=== PATIENT | female | born 1945 | race Caucasian/White ===

== ENCOUNTER 2022-12-28 14:12 | Outpatient (CLI) | payer MEDICARE, SELFPAY ==
--- NOTE | ~2022-12-28 | CT_ITS ---
EXAMINATION: CT shoulder LT wo con DATE: 12/28/2022 14:37 INDICATION: Left shoulder osteoarthritis for preoperative planning TECHNIQUE: Computed tomography (CT) of the left shoulder was performed without intravenous contrast. CT reconstructions of the hip were obtained in the axial, coronal, and sagittal planes. The dose-payton th product was mGy-cm. COMPARISON: None FINDINGS: No fracture. Cephalad subluxation of the humeral head with respect to the glenoid with narrowing of t he subacromial space. There is also moderate fatty atrophy of the supraspinatus, both findings sugges ting chronic at least partial tear of the supraspinatus tendon. Alignment is otherwise normal. There is advanced left glenohumeral osteoarthritis with remodeling with loss of bone stock along the medial aspect of the humeral head as well as of the glenoid, bladder resulting in approximately 5 degrees o f acquired retroversion. Moderate subarticular cystic change along the inferior glenoid. Moderate lef t acromioclavicular osteoarthritis. There is a large glenohumeral joint effusion which accumulates pr imarily within the deep subscapular recess which is distended to 5.8 x 4.6 x 4.6 cm. There is also pr ominent distention of the long head biceps tendon sheath measuring 3.6 x 3.1 x 3.7 cm. Somewhat amorp hous calcification in the region of the rotator cuff interval and distal supraspinatus tendon which c ould represent either calcific debris from the advanced osteoarthritis or potentially calcific tendin itis. There appears be a lucent suture anchor tract at the cephalad aspect of the intertubercular nayan ove suggesting prior bicipital tenodesis. Atherosclerotic coronary artery calcifications. No pericard ial effusion. No pathologically enlarged lymphadenopathy at the left axilla or visualized portions of the left hemithorax. IMPRESSION: 1. Advanced left glenohumeral osteoarthritis with associated large joint effusion. 2. 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 3. Calcification at the rotator cuff interval and expected region of the distal supraspinatus tendon which could represent calcific debris related to the osteoarthritis or potentially calcific tendiniti s. Reviewed, dictated and finalized at location A. IMPRESSION: 1. Advanced left glenohumeral osteoarthritis with associated large joint effusi on. 2. 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 3. Calcification at the rotator cuff interval and expected region of the distal supraspinatus tendon which could represent calcific debris related to the oste oarthritis or potentially calcific tendinitis.
== END 2022-12-28 14:13 | disposition home or self-care (01) ==
PROVIDERS: PCP Physician Assistant; Visit Provider Orthopaedic Surgery
DX: M19.012 Primary osteoarthritis, left shoulder (principal); S46.812A Strain of other muscles, fascia and tendons at shoulder and upper arm level, left arm, initial encounter; M75.32 Calcific tendinitis of left shoulder; X58.XXXA Exposure to other specified factors, initial encounter
CPT/HCPCS: 73200

== ENCOUNTER 2023-03-07 09:50 | Outpatient (CLI) | payer MEDICARE, SELFPAY ==
[2023-03-07 11:08] LABS: Basophils Absolute Auto 0.1 K/mm3 (0.0-0.1); Basophils Percent Auto 1.2 % (0.2-1.2); Eosinophils Absolute Auto 0.3 K/mm3 (0-0.3); Eosinophils Percent Auto 3.9 % (0-4.4); Hematocrit 38.4 % (37.0-47.0); Hemoglobin 11.9 g/dL (12.0-15.0); Immature Granulocyte Absolute 0.02 K/mm3 (0.00-0.031); Immature Granulocyte Percent A 0.3 % (0-0.5); Lymphocytes Absolute Auto 1.71 K/mm3 (0.9-3.2); Lymphocytes Percent Auto 23.3 % (18.3-44.2); Mean Corpuscular Hemoglobin 30.3 pg (26-34); Mean Corpuscular Volume 97.7 fl (80-100); Mean Platelet Volume 8.9 fl (7.4-10.4); Monocytes Absolute Auto 0.6 K/mm3 (0.1-0.6); Monocytes Percent Auto 8.7 % (2.6-8.5); Neutrophils Absolute Auto 4.6 K/mm3 (1.3-6.7); Neutrophils Percent Auto 62.6 % (45.5-73.1); Platelet Count Result 436 k/mm3 (150-375); Red Blood Count 3.93 M/mm3 (4.2-5.4); Red Cell Distribution Width 13.1 % (11.5-14.5); White Blood Count 7.4 K/mm3 (4.5-10.0)
[2023-03-07 11:18] LABS: Potassium 4.2 mmol/L (3.4-5.0)
[2023-03-07 11:19] LABS: Anion Gap 5 mmol/L (8-16); Blood Urea Nitrogen 17 mg/dL (7-17); Carbon Dioxide 29 mmol/L (22-30); Chloride 103 mmol/L (98-107); Estimated Glomerular Filt Rate > 60; Glucose 83 mg/dL (65-110); Sodium 137 mmol/L (137-145)
== END 2023-03-07 09:51 | disposition home or self-care (01) ==
LOC: ANHSURGERY 09:53
PROVIDERS: Anesthesiology; PCP Physician Assistant; Visit Provider Orthopaedic Surgery
DX: M12.812 Other specific arthropathies, not elsewhere classified, left shoulder (principal); E11.9 Type 2 diabetes mellitus without complications
CPT/HCPCS: 36415; 80048; 85025; 87081

== ENCOUNTER 2023-04-03 02:39 | Day surgery (SDC) | payer MEDICARE, SELFPAY ==
[2023-03-07 10:00] VITALS: BMI 26.6
--- NOTE | 2023-03-07 10:40 | PC.NURSE ---
Report to the Outpatient Waiting Room, entrance under the green pavilion located off [facility], at time __0830 on date _04/03/23 . Planned Procedure Time: ___1030 . Time changes happen often and if your time is changed the preop area will call you the afternoon before. - You and your visitor will be asked to self-screen and do not enter if you have any COVID symptoms. - A mask is optional within the hospital at this time. Patients may have clear liquids (water, carbonated beverages, clear teas, apple juice) until 3 hours prior to surgery with a maximum of 20 ounces. - No food from midnight until time of surgery - Infants may have breast milk until 4 hours before surgery, infant formula 6 hours prior to surgery. - Children will be allowed to drink immediately following surgery. If applicable, please bring a bottle or sippy cup to assist with drinking. Juice, water, soda, and popsicles are readily available. For infants on formula, please bring formula the day of surgery. Pacifiers are allowed. Take the following medications with a SIP of water the morning of surgery: _AMLODIPINE,GABAPENTIN,PAROXETINE DO NOT STOP ANY OF YOUR OTHER PRESCRIPTION MEDICATIONS PRIOR TO SURGERY ?EXCEPT THE FOLLOWING Medications to discontinue per physician __ASPIRIN 7 DAYS PRE OP PER DR MELENDEZ .LAST DOSE 03/26/23. ALL VITAMINS AND SUPPLEMENTS 3 DAYS PRE OP.LAST DOSE 03/30/23 Please no make-up, nail irish, hairspray, perfume, deodorant, or body powder the day of surgery. No jewelry (including any body piercings) or valuables the day of surgery, leave them at home. Please take a shower or bath the night before, or the morning of, surgery with an antibacterial soap. Wear comfortable, loose fitting clothing. Children are encouraged to wear pajamas. - Jewelry must be removed prior to entering the operating room. Rings and piercings that are not removed may be cut off. - The hospital will not accept responsibility for valuables. - Please leave all valuables, including medications, at home the day of surgery. If you are going home after surgery, a licensed recycler forklift driver truck driver must drive you home. - NO public transportation without another adult if you receive anesthesia. - We recommend that an adult stay with you for 24 hours following discharge. - We also recommend that you do not drive, make important decision, drink alcoholic beverages, or take any drugs that were not prescribed by your health care provider for at least 24 hours after your discharge time. For Pediatric surgeries, we recommend two adults accompany the child home. Follow any additional instructions given to you from your surgeon. If you or anyone in your household have experienced Covid symptoms in the past week, please notify your surgeon or the nurse liaison at the phone number below for possible testing. VERBAL AND WRITTEN instructions given to _PATIENT AND SPOUSE BOB and asked if any additional questions and then verbalized understanding. Patient advised to call surgeon office or pre surgery nurse liaison [phone] if any additional questions.
[2023-03-07 10:56] VITALS: BP 144/75; PULSE 66; RESP 18; TEMP 36.9; O2SAT 97
[2023-04-03] VITALS (16 sets, daily range): BP systolic 119–138; BP diastolic 49–91; PULSE 74–91; RESP 14–18; TEMP 36.2–37.2; O2SAT 87–100; BMI 26.1
--- NOTE | ~2023-04-03 | XR_ITS ---
XR shoulder LT min 2V 04/03/2023 13:14 Indication: Left reversed total shoulder arthroplasty Procedure: 2 views left shoulder Comparison: 12/05/2022 Findings: Status post recent left total shoulder arthroplasty. Prosthesis well seated. Surrounding os seous structures are unremarkable. There are degenerative changes of the acromioclavicular joint. No fracture or traumatic malalignment. There is gas in the overlying soft tissues, consistent with recen t surgery. Impression: 1: Status post recent left shoulder arthroplasty. Reviewed, dictated and finalized at location L. Impression: 1: Status post recent left shoulder arthroplasty.
[2023-04-03] MEDS: ACETAMINOPHEN 500 MG TABLET 1000 MG PO ×3 (08:33→20:27)
[2023-04-03 09:02] LABS: Glucose Point of Care 108 mg/dl (65-105)
--- NOTE | 2023-04-03 09:41 | WPDANESEPPF ---
Anes - Initial Pre Proc Eval Procedure: Operation Date: 04/03/23 10:30 Proposed Procedures p Left Reverse Total Shoulder Arthroplasty - Rashad Betts MD Date/Time: 04/03/23 09:41 Surgeon: Rashad Betts MD Pre Op Diagnosis: Lt Rot Cuff Arthropathy Patient Data Age: 78 Gender: F Height: 1.63 m Weight: 69.1 kg Last Vital Signs Temp 36.4 C L 04/03/23 08:42 Pulse 74 04/03/23 08:42 Resp 16 04/03/23 08:42 BP 125/91 H 04/03/23 08:42 Pulse Ox 99 04/03/23 08:42 O2 Del Method Room Air 04/03/23 08:42 Allergies Allergy/AdvReac Type Severity Reaction Status Date / Time latex Allergy Severe HIVES Verified 04/03/23 08:29 adhesive tape Allergy Mild Hives Verified 04/03/23 08:29 Sulfa (Sulfonamide Allergy Mild RASH Verified 04/03/23 08:29 Antibiotics) sulfanilamide Allergy Unknown Unknown Verified 04/03/23 08:29 metoclopramide Allergy Confusion/MUSCLE Verified 04/03/23 08:29 PAIN Home Medications Medication Instructions Recorded Confirmed Type acetaminophen 325 mg capsule 325 mg PO Q6H PRN Pain 12/05/22 02/05/23 History amlodipine 10 mg tablet 10 mg PO DAILY 12/05/22 03/07/23 History atorvastatin 10 mg tablet 20 mg PO DAILY 12/05/22 03/07/23 History famotidine 20 mg tablet 20 mg PO DAILY 12/05/22 03/07/23 History gabapentin 300 mg capsule 300 mg PO TID 12/05/22 03/07/23 History lancets 12/05/22 02/05/23 History losartan 25 mg tablet 25 mg PO DAILY 12/05/22 03/07/23 History metformin 500 mg tablet 1,000 mg PO DAILY 12/05/22 03/07/23 History paroxetine HCl 40 mg tablet 40 mg PO DAILY 12/05/22 03/07/23 History spironolactone 25 mg tablet 12.5 mg PO DAILY 12/05/22 03/07/23 History pantoprazole 40 mg tablet,delayed 40 mg PO QAM 02/05/23 03/07/23 History release vitamin A-vitamin C-vit E-min 1 tablet PO DAILY 02/05/23 03/07/23 History tablet aspirin 81 mg tablet,delayed 81 mg PO DAILY 03/07/23 03/07/23 History release (Adult Low Dose Aspirin) vitamin E 100 unit capsule 45 mg PO DAILY 03/07/23 03/07/23 History mupirocin 2 % topical ointment 1 applic topical TID #15 grams 03/09/23 Rx cholecalciferol (vitamin D3) 50 50 mcg PO DAILY 03/23/23 History mcg (2,000 unit) capsule cyclobenzaprine 5 mg tablet 5 mg PO TID PRN 03/23/23 History aspirin 81 mg tablet,delayed 81 mg PO BID 14 days #28 tabs 04/03/23 Rx release oxycodone-acetaminophen 5 mg-325 1 - 2 tablet PO Q4-6H PRN pain #30 04/03/23 Rx mg tablet tabs Laboratory Tests 04/03/23 08:59 POC Capillary Glucose 108 H mg/dl (65-105) Patient hx anesthesia problems: none Family hx anesthesia problems: none Results Review: All pre-operative results and documents have been reviewed as part of the pre-operative evaluation. [facility] Past Medical History Medical History History of abdominal hernia Surgical History Surgical History History of carpal tunnel surgery of left wrist (~12/09/12) History of foot surgery (~06/13/96) marcos feet neuropathy pins in feet History of left knee replacement (~2009) History of partial hysterectomy (~1993) History of surgery on lower extremity (~04/2019) repaired torn rt leg ligament History of total right hip replacement (~05/21/19) History of total right knee replacement (~09/25/16) Family History Family History Other Diabetes mellitus Family history of Parkinson's disease Family history of arthritis Family history of cardiovascular disease Family history of lung cancer Family history of malignant neoplasm of bone Hypertension Malignant neoplasm of prostate Social History Social History Smoking status: Never smoker Alcohol intake: never Lack of Transportation: No Lack of Food: Never True Current Housing: [place]
[2023-04-03] MEDS: LACTATED RINGERS 1,000 ML 30 ML IV CONT ×2 (09:56→13:00)
[2023-04-03] MEDS: TRANEXAMIC ACID 1,000MG/ISO100 1,000 MG/100 ML BAG 200 MG IVPB (10:04)
--- NOTE | 2023-04-03 10:11 | WPDHPUPDATE1 ---
History and Physical Update Update Date/Time: 04/03/23 10:11 History and Physical has been reviewed, including an updated exam of the patient. There are NO changes in the patient's condition. Risks, benefits, and alternatives have been discussed and questions answered. Patient agrees to proceed with procedure.
[2023-04-03] MEDS: ceFAZolin 2 GM/D5W 50 ML 2 GM/50 ML BAG IVPB ×2 (10:48→17:19)
[2023-04-03 13:13] LABS: Glucose Point of Care 125 mg/dl (65-105)
--- NOTE | 2023-04-03 13:37 | P.OP_ITS ---
Procedure Note - Detailed Date of Procedure 04/03/23 Pre-op Diagnosis Lt Rot Cuff Arthropathy Post-op Diagnosis Same Procedure Performed Reverse total shoulder arthroplasty, left. Surgeon Rashad Betts MD Anesthesia General and Regional (Interscalene block.) Findings 18 degree posterior tilt anatomically corrected with a 15 degree augment and this was slightly oriented superiorly to correct the 10 degree anatomic superior tilt. Reasonably good bone quality. Fairly lax soft tissues. 2 Large ganglion cysts were encountered in the biceps tendon sheath. Description of Procedure The patient was given an interscalene block in the preoperative area. Pre operative antibiotics were given. The patient was transferred to the operating room and a general anesthetic was administered. The beach chair position was used at 45 degrees. All bony prominences were padded. The head was carefully stabilized on the [facility] head of partner development. A sterile prep and drape was performed in the usual manner with ChloraPrep. A longitudinal incision was created at the anterior shoulder just lateral to the deltopectoral interval. Careful dissection was performed to expose the interval and protect the cephalic vein. The vein was retracted medially. Anterior circumflex vessel branches were suture ligated. The biceps was tenodesed. A subscapularis tenotomy was performed. The inferior capsule was released, exposing the humeral head. Osteophytes were removed. Care was taken to stay on bone to protect the axillary nerve. The anatomic head cut was taken with the oscillating saw. The guide pin was placed, central drilling performed, and the broach trial inserted. The neck anteversion and inclination were carefully assessed. The cut protector was placed, and attention was turned to the glenoid. Retractors were placed. Releases were carried out for exposure. The subscapularis was mobilized, the inferior capsule and long head of triceps released, and the superior and middle glenohumeral ligaments released as well. Labral tissue was resected as needed. The sizing template was used to assess the baseplate position low on the glenoid. A guide pin was placed. Minimal reaming was used to accomplish a flat surface without violating the subchondral bone. Version was corrected according to preoperative templating. The boss was drilled, and the real component was impacted into position. Supplemental locking screws were placed centrally, superiorly, and inferiorly. The glenosphere was impacted into the taper. The proximal humerus was reamed for the inset component. The humeral components were trialed. The real humeral stem, tray, and insert were impacted into position. The shoulder was copiously irrigated periodically with pulsatile lavage. The shoulder was reduced and stability confirmed. 1 gram of Vancomycin powder was placed in the joint. The biceps tenodesis. The deltopectoral space was reapproximated with number 1 Vicryl. The remaining tissue was closed with 0 Quill and 2-0 Quill running suture and steri- strips. A sterile silver occlusive dressing and shoulder immobilizer were placed. The patient was transferred to the recovery room. Implants Shoulder Innovations reverse TSA size 0 stem. +0 polyethylene insert. 15 degree augmented baseplate. 33 + 3 mm glenosphere. Estimated Blood Loss -50.0 Drains No Pathology None sent Complications No immediate complications Condition Stable Disposition PACU [facility] Billing Surgery - Charge Forward: Surgery Billing
--- NOTE | 2023-04-03 16:58 | ADMGEN ---
This patient, Mireya Castle, was admitted to Medical Room 349-01. Patient/family oriented to hospital policies and general routines including ID bracelet, bed and alarms, visiting hours, pain management, procedures, bathroom and other care routines, personal items, smoking policy, room service/diet, and visiting hours. Information on how to activate the Rapid Response Team has been discussed. Patient/Family are encouraged to report perceived risks to care and to ask questions if they do not understand what they are told or what they should do.
[2023-04-03] MEDS: ASPIRIN 81 MG ENTERIC TABLET PO (17:19)
[2023-04-03] MEDS: GABAPENTIN 300 MG CAPSULE PO (17:19)
[2023-04-03] MEDS: SENNA/DOCUSATE SODIUM TABLET 2 TAB PO (17:19)
[2023-04-04 00:17] VITALS: BP 134/78; PULSE 78; RESP 16; TEMP 36.2; O2SAT 100
[2023-04-04] MEDS: ACETAMINOPHEN 500 MG TABLET 1000 MG PO ×2 (02:54→09:46)
[2023-04-04] MEDS: ceFAZolin 2 GM/D5W 50 ML 2 GM/50 ML BAG IVPB ×2 (02:54→09:47)
[2023-04-04 05:27] VITALS: BP 144/81; PULSE 73; RESP 15; TEMP 36.6; O2SAT 99
[2023-04-04 05:55] LABS: Basophils Absolute Auto 0.1 K/mm3 (0.0-0.1); Basophils Percent Auto 0.7 % (0.2-1.2); Hematocrit 35.2 % (37.0-47.0); Immature Granulocyte Absolute 0.03 K/mm3 (0.00-0.031); Immature Granulocyte Percent A 0.4 % (0-0.5); Lymphocytes Absolute Auto 0.78 K/mm3 (0.9-3.2); Mean Corpuscular HGB Conc 31.3 g/dl (32-36); Mean Corpuscular Hemoglobin 29.9 pg (26-34); Mean Corpuscular Volume 95.7 fl (80-100); Mean Platelet Volume 9.2 fl (7.4-10.4); Monocytes Absolute Auto 0.7 K/mm3 (0.1-0.6); Monocytes Percent Auto 10.3 % (2.6-8.5); Neutrophils Absolute Auto 5.5 K/mm3 (1.3-6.7); Neutrophils Percent Auto 77.6 % (45.5-73.1); Platelet Count Result 381 k/mm3 (150-375); Red Blood Count 3.68 M/mm3 (4.2-5.4); Red Cell Distribution Width 13.2 % (11.5-14.5); White Blood Count 7.1 K/mm3 (4.5-10.0)
[2023-04-04 06:15] LABS: Anion Gap 3 mmol/L (8-16); Blood Urea Nitrogen 18 mg/dL (7-17); Calcium 8.5 mg/dL (8.4-10.2); Carbon Dioxide 26 mmol/L (22-30); Chloride 99 mmol/L (98-107); Estimated CRCL calculation 38 ml/min; Estimated Glomerular Filt Rate 60; Glucose 126 mg/dL (65-110); Potassium 4.4 mmol/L (3.4-5.0); Sodium 128 mmol/L (137-145)
--- NOTE | 2023-04-04 08:34 | PM.DS ---
DS: Admitting Diagnosis Discharge Date 04/04/23 Admitting Diagnosis Glenohumeral joint arthritis. DS: Discharge Diagnosis Discharge Diagnosis (1) Status post reverse total arthroplasty of left shoulder: Code(s): Z96.612 - Presence of left artificial shoulder joint Status: Acute Assessment and Plan: Postop day 1: Left reverse total shoulder arthroplasty. Patient tolerated procedure well. No complications. Pain manageable with pain medication. No numbness or tingling. We had a lengthy discussion regarding postoperative wound care, limitations, expectations, and exercises. Patient shows good understanding. He has had initial physical therapy and is tolerating it well. DVT prophylaxis: 81 mg baby aspirin b.i.d. for 14 days. Pain medication: Percocet. Patient has followup appointment with Dr. Betts in 3 weeks. DS: Summary Hospital Course Hospital Course: Patient has had PT/OT and tolerating it well. Status at Discharge Functional status at discharge: independent ambulation Overall status at discharge: patient is progressing back to baseline Time Spent with Patient Time attestation: Total time spent providing and/or coordinating discharge services: Exam Narrative: Normal weight 78 y/o Female. Resting comfortably in chair. Wearing sling. Dressing dry and intact with no drainage. Moderate swelling. Mild ecchymosis. No erythema. No hematoma. Range of motion limited due to pain. Calf nontender. Neurologic status intact. No varicosities. Distal pulses palpable. DS: Data Data Completed and Pending Labs on day of discharge: Labs from last 24 hours 04/04/23 04/03/23 04/03/23 05:36 13:06 08:59 WBC 7.1 RBC 3.68 L Hgb 11.0 L Hct 35.2 L MCV 95.7 MCH 29.9 MCHC 31.3 L RDW 13.2 Plt Count 381 H MPV 9.2 Immature Gran % (Auto) 0.4 Neut % (Auto) 77.6 H Lymph % (Auto) 11.0 L [place] % (Auto) 10.3 H Eos % (Auto) 0.0 Baso % (Auto) 0.7 Lymph # (Auto) 0.78 L [place] # (Auto) 0.7 H Eos # (Auto) 0.0 Baso # (Auto) 0.1 Abs Immat Gran (auto) 0.03 Absolute Neuts (auto) 5.5 Absolute Nucleated RBC 0.0 Nucleated RBC % 0.0 Sodium 128 L Potassium 4.4 Chloride 99 Carbon Dioxide 26 Anion Gap 3 L BUN 18 H Creatinine 0.90 Estim Creat Clear Calc 38 Estimated GFR 60 Glucose 126 H POC Capillary Glucose 125 H 108 H Calcium 8.5 Blood Type Antibody Screen 04/03/23 08:57 WBC RBC Hgb Hct MCV MCH MCHC RDW Plt Count MPV Immature Gran % (Auto) Neut % (Auto) Lymph % (Auto) [place] % (Auto) Eos % (Auto) Baso % (Auto) Lymph # (Auto) [place] # (Auto) Eos # (Auto) Baso # (Auto) Abs Immat Gran (auto) Absolute Neuts (auto) Absolute Nucleated RBC Nucleated RBC % Sodium Potassium Chloride Carbon Dioxide Anion Gap BUN Creatinine Estim Creat Clear Calc Estimated GFR Glucose POC Capillary Glucose Calcium Blood Type A Positive Antibody Screen Negative Discharge Plan Discharge Patient Disposition: Home, Self-Care Discharge Instructions: See green instruction sheets Stand Alone Forms: General Discharge Instructions Follow-up/Referrals: Brionna Clark PA [Physician Livestock Trucker] - Discharge Medications: New aspirin 81 mg tablet,delayed release (DR/EC) 81 mg PO BID 14 Days Qty: 28 0RF oxycodone-acetaminophen 5-325 mg tablet 1 - 2 tablet PO Q4-6H MDD 6 PRN (Reason: pain) Qty: 30 0RF Continued vitamin A-vitamin C-vit E-min Tablet 1 tablet PO DAILY pantoprazole 40 mg tablet,delayed release (DR/EC) 40 mg PO QAM acetaminophen 325 mg capsule 325 mg PO Q6H PRN (Reason: Pain) amlodipine 10 mg tablet 20 mg PO DAILY atorvastatin 10 mg tablet 20 mg PO DAILY famotidine 20 mg tablet 20 mg PO DAILY gabapentin 300 mg capsule 300 mg PO TID losartan 25 mg ta
[2023-04-04] MEDS: ASPIRIN 81 MG ENTERIC TABLET PO (09:44)
[2023-04-04] MEDS: FAMOTIDINE 20 MG TABLET PO (09:44)
[2023-04-04] MEDS: PARoxetine 20 MG TABLET 40 MG PO (09:44)
[2023-04-04] MEDS: ATORVASTATIN 10 MG TABLET 20 MG PO (09:45)
[2023-04-04] MEDS: GABAPENTIN 300 MG CAPSULE PO (09:45)
[2023-04-04] MEDS: LOSARTAN POTASSIUM 25 MG TABLET PO (09:45)
[2023-04-04] MEDS: amLODIPine BESYLATE 5 MG TABLET 10 MG PO (09:45)
[2023-04-04] MEDS: SPIRONOLACTONE 12.5 MG TABLET PO (09:45)
[2023-04-04] MEDS: PANTOPRAZOLE 40 MG TABLET PO (09:45)
[2023-04-04] MEDS: SENNA/DOCUSATE SODIUM TABLET 2 TAB PO (09:45)
[2023-04-04] MEDS: metFORMIN HCL 500 MG TABLET 1000 MG PO (09:45)
[2023-04-04] MEDS: polyethylene glycoL 3350 17 GM POWD.PACK PO (09:46)
[2023-04-04 10:57] VITALS: O2SAT 98
== END 2023-04-04 11:45 | disposition home or self-care (01) ==
LOC: ANHSURGERY 08:14 → ANH3MED 15:54
PROVIDERS: Physician Assistant Surgical; PCP Physician Assistant; Visit Provider Orthopaedic Surgery
PROC: (CPT 23472; principal; 2023-04-03 10:30)
DX: M19.012 Primary osteoarthritis, left shoulder (principal); E11.42 Type 2 diabetes mellitus with diabetic polyneuropathy; I10 Essential (primary) hypertension; M81.0 Age-related osteoporosis without current pathological fracture; Z79.84 Long term (current) use of oral hypoglycemic drugs; Z79.82 Long term (current) use of aspirin
CPT/HCPCS: 23472; 36415; 73030; 80048; 82948; 85025; 86850; 86900; 86901; 97110; 97161; 97165; 97530; 97535; A4565; A9270; C1776; J0171; J0330; J0690; J1100; J1170; J1885; J2270; J2371; J2405; J2704; J2795; J3010; J3370; J7120

== ENCOUNTER 2023-07-27 14:29 | Outpatient (CLI) | payer MEDICARE, SELFPAY ==
--- NOTE | ~2023-07-27 | CT_ITS ---
EXAMINATION: CT shoulder RT wo con DATE: 07/27/2023 14:50 INDICATION: Right shoulder osteoarthritis. Preoperative planning. TECHNIQUE: Computed tomography (CT) of the right shoulder was performed without intravenous contrast. Automated exposure control and iterative reconstruction technique were employed. The dose-length pro duct was 454.73 mGy-cm. COMPARISON: Right shoulder radiographs 12/05/2022 FINDINGS: Bone alignment is normal. There is severe osteoarthritis of the acromioclavicular joint. Th ere is advanced osteoarthritis of glenohumeral joint including bone volume loss of humeral head and g lenoid. There is narrowing of the subacromial space, consistent with at least partial rotator cuff te ar. There is calcific tendinitis of the rotator cuff. There is moderate fatty atrophy of supraspinatu s muscle belly. IMPRESSION: 1. Advanced osteoarthritis of glenohumeral joint. 2. Calcific tendinitis and at least partial tear of the rotator cuff. 3. Severe acromioclavicular joint osteoarthritis. Reviewed, dictated and finalized at location A. OPENER
== END 2023-07-27 14:30 | disposition home or self-care (01) ==
LOC: ANHIMG 14:33
PROVIDERS: PCP Physician Assistant; Visit Provider Orthopaedic Surgery
DX: M19.011 Primary osteoarthritis, right shoulder (principal)
CPT/HCPCS: 73200

== ENCOUNTER 2023-09-24 09:55 | Outpatient (CLI) | payer MEDICARE, SELFPAY ==
[2023-09-24 11:21] LABS: Basophils Absolute Auto 0.1 K/mm3 (0.0-0.1); Basophils Percent Auto 1.2 % (0.2-1.2); Eosinophils Absolute Auto 0.4 K/mm3 (0-0.3); Eosinophils Percent Auto 4.8 % (0-4.4); Hematocrit 38.2 % (37.0-47.0); Hemoglobin 11.8 g/dL (12.0-15.0); Immature Granulocyte Absolute 0.01 K/mm3 (0.00-0.031); Immature Granulocyte Percent A 0.1 % (0-0.5); Lymphocytes Absolute Auto 1.94 K/mm3 (0.9-3.2); Lymphocytes Percent Auto 26.5 % (18.3-44.2); Mean Corpuscular HGB Conc 30.9 g/dl (32-36); Mean Corpuscular Hemoglobin 29.4 pg (26-34); Mean Corpuscular Volume 95.3 fl (80-100); Mean Platelet Volume 9.1 fl (7.4-10.4); Monocytes Absolute Auto 0.7 K/mm3 (0.1-0.6); Monocytes Percent Auto 9.7 % (2.6-8.5); Neutrophils Absolute Auto 4.2 K/mm3 (1.3-6.7); Neutrophils Percent Auto 57.7 % (45.5-73.1); Platelet Count Result 416 k/mm3 (150-375); Red Blood Count 4.01 M/mm3 (4.2-5.4); White Blood Count 7.3 K/mm3 (4.5-10.0)
[2023-09-24 12:23] LABS: Anion Gap 4 mmol/L (8-16); Blood Urea Nitrogen 17 mg/dL (7-17); Calcium 9.6 mg/dL (8.4-10.2); Carbon Dioxide 29 mmol/L (22-30); Chloride 104 mmol/L (98-107); Estimated Glomerular Filt Rate > 60; Glucose 92 mg/dL (65-110); Potassium 4.3 mmol/L (3.4-5.0); Sodium 137 mmol/L (137-145)
[2023-09-24 13:08] LABS: MRSA (PCR) DETECTED (NOT DETECTE)
== END 2023-09-24 09:56 | disposition home or self-care (01) ==
PROVIDERS: Anesthesiology; PCP Physician Assistant; Visit Provider Orthopaedic Surgery
DX: Z01.818 Encounter for other preprocedural examination (principal); M19.011 Primary osteoarthritis, right shoulder; E11.9 Type 2 diabetes mellitus without complications
CPT/HCPCS: 36415; 80048; 85025; 87641

== ENCOUNTER 2023-10-16 00:17 | Day surgery (SDC) | payer MEDICARE, SELFPAY ==
[2023-09-24 10:11] VITALS: BMI 26.8
--- NOTE | 2023-09-24 10:39 | PC.NURSE ---
Report to the Outpatient Waiting Room, entrance under the green pavilion located off [facility], at time _0600 on date __10/16/23____. Planned Procedure Time: _0730 . Time changes happen often and if your time is changed the preop area will call you the afternoon before. - You and your visitor will be asked to self-screen and do not enter if you have any COVID symptoms. - A mask is optional within the hospital at this time. Patients may have clear liquids (water, carbonated beverages, clear teas, apple juice) until 3 hours prior to surgery( 4:30 AM) with a maximum of 20 ounces. - No food from midnight until time of surgery - Infants may have breast milk until 4 hours before surgery, infant formula 6 hours prior to surgery. - Children will be allowed to drink immediately following surgery. If applicable, please bring a bottle or sippy cup to assist with drinking. Juice, water, soda, and popsicles are readily available. For infants on formula, please bring formula the day of surgery. Pacifiers are allowed. Take the following medications with a SIP of water the morning of surgery: _AMLODIPINE,GABAPENTIN,PAROXETINE DO NOT STOP ANY OF YOUR OTHER PRESCRIPTION MEDICATIONS PRIOR TO SURGERY ?EXCEPT THE FOLLOWING Medications to discontinue per physician __ALL VITAMINS AND SUPPLEMENTS 3 DAYS PRE OP.LAST DOSE 10/12/23 Please no make-up, nail tajik, hairspray, perfume, deodorant, or body powder the day of surgery. No jewelry (including any body piercings) or valuables the day of surgery, leave them at home. Please take a shower or bath the night before, or the morning of, surgery with an antibacterial soap. Wear comfortable, loose fitting clothing. Children are encouraged to wear pajamas. - Jewelry must be removed prior to entering the operating room. Rings and piercings that are not removed may be cut off. - The hospital will not accept responsibility for valuables. - Please leave all valuables, including medications, at home the day of surgery. If you are going home after surgery, a licensed class a truck driver must drive you home. - NO public transportation without another adult if you receive anesthesia. - We recommend that an adult stay with you for 24 hours following discharge. - We also recommend that you do not drive, make important decision, drink alcoholic beverages, or take any drugs that were not prescribed by your health care provider for at least 24 hours after your discharge time. Follow any additional instructions given to you from your surgeon. If you or anyone in your household have experienced Covid symptoms in the past week, please notify your surgeon or the nurse liaison at the phone number below for possible testing. VERBAL AND WRITTEN instructions given to _PATIENT and asked if any additional questions and then verbalized understanding. Patient advised to call surgeon office or pre surgery nurse liaison [phone] if any additional questions.
[2023-09-24 11:04] VITALS: BP 143/66; PULSE 69; RESP 18; TEMP 36.6; O2SAT 97
--- NOTE | 2023-10-15 12:56 | WPDANESEPPF ---
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 Patient Data Age: 78 Gender: F Height: 1.63 m Weight: 70.8 kg Last Vital Signs Temp 36.6 C 09/24/23 11:04 Pulse 69 09/24/23 11:04 Resp 18 09/24/23 11:04 BP 143/66 H 09/24/23 11:04 Pulse Ox 97 09/24/23 11:04 O2 Del Method Room Air 09/24/23 11:04 Allergies Allergy/AdvReac Type Severity Reaction Status Date / Time latex Allergy Severe HIVES Verified 09/24/23 10:12 adhesive tape Allergy Mild Hives Verified 09/24/23 10:12 Sulfa (Sulfonamide Allergy Mild RASH Verified 09/24/23 10:12 Antibiotics) sulfanilamide Allergy Unknown Unknown Verified 09/24/23 10:12 metoclopramide Allergy Confusion/MUSCLE Verified 09/24/23 10:12 PAIN Home Medications Medication Instructions Recorded Confirmed Type amlodipine 10 mg tablet 10 mg PO DAILY 12/05/22 09/24/23 History famotidine 20 mg tablet 20 mg PO BID 12/05/22 09/24/23 History gabapentin 300 mg capsule 300 mg PO TID 12/05/22 09/24/23 History lancets 12/05/22 07/24/23 History losartan 25 mg tablet 25 mg PO DAILY 12/05/22 09/24/23 History metformin 500 mg tablet 500 mg PO DAILY 12/05/22 09/24/23 History paroxetine HCl 40 mg tablet 40 mg PO DAILY 12/05/22 09/24/23 History spironolactone 25 mg tablet 12.5 mg PO DAILY 12/05/22 09/24/23 History pantoprazole 40 mg tablet,delayed 40 mg PO QAM 02/05/23 09/24/23 History release vitamin A-vitamin C-vit E-min 1 tablet PO DAILY 02/05/23 09/24/23 History tablet vitamin E 100 unit capsule 45 mg PO DAILY 03/07/23 09/24/23 History cholecalciferol (vitamin D3) 50 50 mcg PO DAILY 03/23/23 09/24/23 History mcg (2,000 unit) capsule cyclobenzaprine 5 mg tablet 5 mg PO TID PRN Muscle Spasm 03/23/23 09/24/23 History acetaminophen 325 mg capsule 650 mg PO PRN PRN Pain 09/24/23 09/24/23 History (Tylenol) atorvastatin 20 mg tablet 20 mg PO DAILY 09/24/23 09/24/23 History meclizine 12.5 mg tablet 12.5 mg PO BID PRN Dizziness 09/24/23 09/24/23 History pyridoxine (vitamin B6) 100 mg 100 mg PO DAILY 09/24/23 09/24/23 History tablet (Vitamin B-6) Patient hx anesthesia problems: none Family hx anesthesia problems: none Results Review: All pre-operative results and documents have been reviewed as part of the pre-operative evaluation. [facility] Past Medical History Medical History (Updated 10/15/23 @ 12:58 by Darvin Amato DO) CVA (cerebral vascular accident) 1980 no residual GERD (gastroesophageal reflux disease) History of abdominal hernia Hyperlipidemia Hypertension TIA (transient ischemic attack) Surgical History Surgical History (Updated 10/15/23 @ 12:58 by Darvin Amato DO) History of carpal tunnel surgery of left wrist (~12/09/12) History of foot surgery (~06/13/96) marcos feet neuropathy pins in feet History of left knee replacement (~2009) History of Vickie fundoplication 2018 History of partial hysterectomy (~1993) History of surgery on lower extremity (~04/2019) repaired torn rt leg ligament History of total right hip replacement (~05/21/19) History of total right knee replacement (~09/25/16) Status post reverse total arthroplasty of left shoulder (~04/03/23) Family History Family History Other Diabetes mellitus Family history of Parkinson's disease Family history of arthritis Family history of cardiovascular disease Family history of lung cancer Family history of malignant neoplasm of bone Hypertension Malignant neoplasm of prostate Social History Social History (Updated 09/24/23 @ 10:28 by Tere Sexton) Smoking status: Never smoker Alcohol intake: never Substance use: never Do You Feel Safe in your Home?: Yes Lack o
[2023-10-16] VITALS (11 sets, daily range): BP systolic 117–143; BP diastolic 47–67; PULSE 73–97; RESP 12–22; TEMP 35.9–36.8; O2SAT 91–100
--- NOTE | ~2023-10-16 | XR_ITS ---
EXAMINATION: XR shoulder RT min 2V DATE: 10/16/2023 10:02 INDICATION: Right reverse total shoulder arthroplasty TECHNIQUE: AP and transscapular Y views of the right shoulder were obtained. COMPARISON: None FINDINGS: Reverse right total shoulder arthroplasty which appears well seated in near anatomic alignment. No fr acture. Severe right acromioclavicular osteoarthritis with prominent heterotopic ossicle at the cepha lad margin of the joint space. Soft tissues are unremarkable. Visualized portions of the right lung a re clear. IMPRESSION: 1. Expected appearance of a reverse right total shoulder arthroplasty in near-anatomic alignment. 2. Severe right acromioclavicular osteoarthritis. Reviewed, dictated and finalized at location A. [employer]OR OF INFORMATICS IMPRESSION: 1. Expected appearance of a reverse right total shoulder arthroplasty in near-a natomic alignment. 2. Severe right acromioclavicular osteoarthritis.
[2023-10-16] MEDS: LACTATED RINGERS 1,000 ML 30 ML IV CONT ×2 (07:00→09:51)
[2023-10-16] MEDS: TRANEXAMIC ACID 1,000MG/ISO100 1,000 MG/100 ML BAG 200 MG IVPB (07:00)
[2023-10-16] MEDS: ACETAMINOPHEN 500 MG TABLET 1000 MG PO ×4 (07:00→23:16)
--- NOTE | 2023-10-16 07:18 | WPDHPUPDATE1 ---
History and Physical Update Update Date/Time: 10/16/23 07:18 History and Physical has been reviewed, including an updated exam of the patient. There are NO changes in the patient's condition. Risks, benefits, and alternatives have been discussed and questions answered. Patient agrees to proceed with procedure.
[2023-10-16 07:21] LABS: Glucose Point of Care 91 mg/dl (65-105)
[2023-10-16] MEDS: ceFAZolin 2 GM/D5W 50 ML 2 GM/50 ML BAG IVPB ×3 (07:34→23:20)
--- NOTE | 2023-10-16 08:17 | WPDANESPNB ---
Anes - Peripheral Nerve Block Date/Time: 10/16/23 08:17 I have discussed with the patient/family/POA the placement of a peripheral nerve block for post-operative pain management, including associated risks, benefits, complications, and side effects. Alternative methods of post-operative analgesia were detailed. Questions were solicited and answers provided to the satisfaction of the patient/family/POA. Time-Out: A pre-procedural Time-Out was completed immediately before starting the procedure and confirmed: Patient Identification, Site, Procedure, Patient Position and the Availability of Requisite Equipment. Clinical Indications: Acute post-operative pain management requested by the operative surgeon. Nerve Block Insertion Note Anes-nerve block: interscalene right Patient position: supine Skin prep: chlorhexidine Needle: 22 gauge, stimulating, insulated echogenic needle. Needle length: 50 mm Technique: ultrasound Injectate: bupivacaine 0.5% with epi 5 mcg/ml (30cc- no epi) Observations: tolerated well Complications: none Procedure start time:: 722 Procedure end time:: 726
[2023-10-16] MEDS: SODIUM CHLORIDE 0.9% IV 37.7 ML, MORPHINE SULFATE INJ (*CRX) 2 MG, ROPivacaine HCL 1% 2... INFILTRATE (08:21)
[2023-10-16] MEDS: VANCOMYCIN HCL 1,000 MG VIAL 1000 MG TOPICAL (08:22)
--- NOTE | 2023-10-16 09:35 | W.PM.PROC2 ---
Procedure Note - Detailed Date of Procedure 10/16/23 Pre-op Diagnosis Prim OA Rt Shoulder Post-op Diagnosis Same Procedure Performed Reverse right total shoulder arthroplasty. Surgeon Rashad Betts MD Manager Of Corporate Brionna Clark PA-C Anesthesia General and Regional (Interscalene block.) Findings Severe cuff tear arthropathy. Supraspinatus tear and biceps tendinosis. 18 degree superior inclination correction. Description of Procedure The patient was given an interscalene block in the preoperative area. Preoperative antibiotics were given. The patient was transferred to the operating room and a general anesthetic was administered. The beach chair position was used at 45 degrees. All bony prominences were padded. The head was carefully stabilized on the [facility] head of integrated media. A sterile prep and drape was performed in the usual manner with ChloraPrep. A longitudinal incision was created at the anterior shoulder just lateral to the deltopectoral interval. Hydrogen peroxide was placed on the incision and then rinsed after one minute. Careful dissection was performed to expose the interval and protect the cephalic vein. The vein was retracted medially. The upper border of the pectoralis was released. Anterior circumflex vessel branches were suture ligated. The biceps was tenodesed. A subscapularis tenotomy was performed. The inferior capsule was released, exposing the humeral head. Osteophytes were removed. Care was taken to stay on bone to protect the axillary nerve. The anatomic head cut was taken with the oscillating saw. The guide pin was placed, central drilling performed, and the broach trial inserted. The neck anteversion and inclination were carefully assessed. The cut protector was placed, and attention was turned to the glenoid. Retractors were placed. Releases were carried out for exposure. The subscapularis was mobilized, the inferior capsule and long head of triceps released, and the superior and middle glenohumeral ligaments released as well. Labral tissue was resected as needed. The sizing template was used to assess the baseplate position low on the glenoid. A guide pin was placed. Minimal reaming was used to accomplish a peripheral inset without violating the subchondral bone. Version was corrected according to preoperative templating. The boss was drilled, and the real component was impacted into position. Supplemental locking screws were placed centrally, superiorly, and inferiorly. The glenosphere was impacted into the taper. The proximal humerus was reamed for the inset component. The humeral components were trialed. The real humeral stem, tray, and insert were impacted into position. The shoulder was copiously irrigated periodically with pulsatile lavage. The shoulder was reduced and stability confirmed. 1 gram of Vancomycin powder was placed in the joint. The biceps tenodesis was incorporated with the pectoralis tendon repair. The deltopectoral space was reapproximated with number 1 Vicryl. The remaining tissue was closed with 0 Quill and 2-0 Quill running suture and steri-strips. A sterile silver occlusive dressing and shoulder immobilizer were placed. The patient was transferred to the recovery room. Physician assistant track and field coach, Brionna Clark PA-C, required for surgery; including patient positioning, draping, tissue retraction, maintaining instrument position, wound closure, and dressing placement. Implants Shoulder [employer]ations reverse TSA size 0 stem. +0 polyethylene insert. 15 degree augmented baseplate. 33 +3 mm glenosphere. Estimated Blood Loss 100 Drains No Pathology None sent Complications No immediate complications Condition Stable Disposition PACU [facility] Billing Surgery - Charge Forward: Surgery Billing
[2023-10-16 10:09] LABS: Glucose Point of Care 165 mg/dl (65-105)
--- NOTE | 2023-10-16 10:43 | SUR.PHASEI ---
Floor RN has to call back for report.
--- NOTE | 2023-10-16 11:15 | ADMGEN ---
This patient, Mireya Castle, was admitted to Medical Room 250-01. Patient/family oriented to hospital policies and general routines including ID bracelet, bed and alarms, visiting hours, pain management, procedures, bathroom and other care routines, personal items, smoking policy, room service/diet, and visiting hours. Information on how to activate the Rapid Response Team has been discussed. Patient/Family are encouraged to report perceived risks to care and to ask questions if they do not understand what they are told or what they should do.
[2023-10-16 11:58] LABS: Glucose Point of Care 204 mg/dl (65-105)
[2023-10-16 12:06] LABS: Basophils Absolute Auto 0.1 K/mm3 (0.0-0.1); Basophils Percent Auto 0.5 % (0.2-1.2); Eosinophils Absolute Auto 0.1 K/mm3 (0-0.3); Eosinophils Percent Auto 0.6 % (0-4.4); Hematocrit 32.8 % (37.0-47.0); Hemoglobin 10.2 g/dL (12.0-15.0); Immature Granulocyte Absolute 0.03 K/mm3 (0.00-0.031); Immature Granulocyte Percent A 0.3 % (0-0.5); Lymphocytes Absolute Auto 0.56 K/mm3 (0.9-3.2); Mean Corpuscular HGB Conc 31.1 g/dl (32-36); Mean Corpuscular Hemoglobin 30.3 pg (26-34); Mean Corpuscular Volume 97.3 fl (80-100); Mean Platelet Volume 9.5 fl (7.4-10.4); Monocytes Absolute Auto 0.1 K/mm3 (0.1-0.6); Monocytes Percent Auto 1.1 % (2.6-8.5); Neutrophils Absolute Auto 8.6 K/mm3 (1.3-6.7); Neutrophils Percent Auto 91.5 % (45.5-73.1); Platelet Count Result 353 k/mm3 (150-375); Red Blood Count 3.37 M/mm3 (4.2-5.4); White Blood Count 9.4 K/mm3 (4.5-10.0)
[2023-10-16 12:17] LABS: Anion Gap 8 mmol/L (8-16); Blood Urea Nitrogen 23 mg/dL (7-17); Calcium 8.8 mg/dL (8.4-10.2); Carbon Dioxide 22 mmol/L (22-30); Chloride 104 mmol/L (98-107); Estimated CRCL calculation 30 ml/min; Estimated Glomerular Filt Rate 40; Glucose 198 mg/dL (65-110); Potassium 4.1 mmol/L (3.4-5.0); Sodium 134 mmol/L (137-145)
[2023-10-16] MEDS: GABAPENTIN 300 MG CAPSULE PO ×2 (12:22→16:27)
[2023-10-16] MEDS: ASPIRIN 81 MG ENTERIC TABLET PO (16:27)
[2023-10-16] MEDS: FAMOTIDINE 20 MG TABLET PO (16:27)
[2023-10-16] MEDS: SENNA/DOCUSATE SODIUM TABLET 2 TAB PO (16:28)
[2023-10-16 17:10] LABS: Glucose Point of Care 201 mg/dl (65-105)
[2023-10-17 00:45] VITALS: BP 133/50; PULSE 84; RESP 20; TEMP 36.1; O2SAT 95
[2023-10-17 02:53] VITALS: BP 128/55; PULSE 69; RESP 20; TEMP 36.1; O2SAT 97
[2023-10-17] MEDS: ACETAMINOPHEN 500 MG TABLET 1000 MG PO ×2 (05:03→11:16)
[2023-10-17 05:33] LABS: Basophils Absolute Auto 0.1 K/mm3 (0.0-0.1); Basophils Percent Auto 0.8 % (0.2-1.2); Eosinophils Percent Auto 0.1 % (0-4.4); Hematocrit 33.2 % (37.0-47.0); Hemoglobin 10.4 g/dL (12.0-15.0); Immature Granulocyte Absolute 0.03 K/mm3 (0.00-0.031); Immature Granulocyte Percent A 0.3 % (0-0.5); Lymphocytes Absolute Auto 1.39 K/mm3 (0.9-3.2); Lymphocytes Percent Auto 15.8 % (18.3-44.2); Mean Corpuscular HGB Conc 31.3 g/dl (32-36); Mean Corpuscular Hemoglobin 30.2 pg (26-34); Mean Corpuscular Volume 96.5 fl (80-100); Mean Platelet Volume 9.3 fl (7.4-10.4); Monocytes Absolute Auto 0.8 K/mm3 (0.1-0.6); Monocytes Percent Auto 8.8 % (2.6-8.5); Neutrophils Absolute Auto 6.5 K/mm3 (1.3-6.7); Neutrophils Percent Auto 74.2 % (45.5-73.1); Platelet Count Result 341 k/mm3 (150-375); Red Blood Count 3.44 M/mm3 (4.2-5.4); Red Cell Distribution Width 13.8 % (11.5-14.5); White Blood Count 8.8 K/mm3 (4.5-10.0)
[2023-10-17 05:55] LABS: Anion Gap 5 mmol/L (8-16); Blood Urea Nitrogen 15 mg/dL (7-17); Calcium 9.3 mg/dL (8.4-10.2); Carbon Dioxide 26 mmol/L (22-30); Chloride 103 mmol/L (98-107); Estimated CRCL calculation 48 ml/min; Estimated Glomerular Filt Rate > 60; Glucose 122 mg/dL (65-110); Potassium 4.3 mmol/L (3.4-5.0); Sodium 134 mmol/L (137-145)
--- NOTE | 2023-10-17 07:57 | PM.DS ---
DS: Admitting Diagnosis Discharge Date 10/17/23 Admitting Diagnosis Shoulder arthrtis. DS: Discharge Diagnosis Discharge Diagnosis (1) Status post reverse total arthroplasty of right shoulder: Code(s): Z96.611 - Presence of right artificial shoulder joint Status: Acute Assessment and Plan: Postop day 1: Right reverse total shoulder arthroplasty. Patient tolerated procedure well. No complications. Pain manageable with pain medication. No numbness or tingling. We had a lengthy discussion regarding postoperative wound care, limitations, expectations, and exercises. Patient shows good understanding. She has had initial physical therapy and is tolerating it well. DVT prophylaxis: 81 mg baby aspirin b.i.d. for 14 days. Pain medication: Percocet. Patient has followup appointment with Dr. Betts in 3 weeks. DS: Summary Hospital Course Hospital Course: Has had initial PT/OT and tolerating it well. Status at Discharge Functional status at discharge: independent ambulation Overall status at discharge: patient is progressing back to baseline Time Spent with Patient Time attestation: Total time spent providing and/or coordinating discharge services: Exam Narrative: Normal weight 78 y/o Female. Resting comfortably in bed. Wearing sling. Dressing dry and intact with no drainage. Moderate swelling. Moderate ecchymosis. No erythema. No hematoma. Range of motion limited due to pain. Calf nontender. Neurologic status intact. No varicosities. Distal pulses palpable. Deltoid fires. DS: Data Data Completed and Pending Labs on day of discharge: Labs from last 24 hours 10/17/23 10/16/23 10/16/23 05:14 17:02 11:52 WBC 8.8 RBC 3.44 L Hgb 10.4 L Hct 33.2 L MCV 96.5 MCH 30.2 MCHC 31.3 L RDW 13.8 Plt Count 341 MPV 9.3 Immature Gran % (Auto) 0.3 Neut % (Auto) 74.2 H Lymph % (Auto) 15.8 L [place] % (Auto) 8.8 H Eos % (Auto) 0.1 Baso % (Auto) 0.8 Lymph # (Auto) 1.39 [place] # (Auto) 0.8 H Eos # (Auto) 0.0 Baso # (Auto) 0.1 Abs Immat Gran (auto) 0.03 Absolute Neuts (auto) 6.5 Absolute Nucleated RBC 0.0 Nucleated RBC % 0.0 Sodium 134 L Potassium 4.3 Chloride 103 Carbon Dioxide 26 Anion Gap 5 L BUN 15 D Creatinine 0.80 Estim Creat Clear Calc 48 Estimated GFR > 60 Glucose 122 H POC Capillary Glucose 201 H 204 H Calcium 9.3 Blood Type Antibody Screen 10/16/23 10/16/23 10/16/23 11:43 10:04 06:43 WBC 9.4 RBC 3.37 L Hgb 10.2 L Hct 32.8 L MCV 97.3 MCH 30.3 MCHC 31.1 L RDW 14.0 Plt Count 353 MPV 9.5 Immature Gran % (Auto) 0.3 Neut % (Auto) 91.5 H Lymph % (Auto) 6.0 L [place] % (Auto) 1.1 L Eos % (Auto) 0.6 Baso % (Auto) 0.5 Lymph # (Auto) 0.56 L [place] # (Auto) 0.1 Eos # (Auto) 0.1 Baso # (Auto) 0.1 Abs Immat Gran (auto) 0.03 Absolute Neuts (auto) 8.6 H Absolute Nucleated RBC 0.0 Nucleated RBC % 0.0 Sodium 134 L Potassium 4.1 Chloride 104 Carbon Dioxide 22 Anion Gap 8 BUN 23 H Creatinine 1.30 H Estim Creat Clear Calc 30 Estimated GFR 40 L Glucose 198 H POC Capillary Glucose 165 H Calcium 8.8 Blood Type A Positive Antibody Screen Negative Discharge Plan Discharge Patient Disposition: Home, Self-Care Discharge Instructions: See green instruction sheets Stand Alone Forms: General Discharge Instructions Follow-up/Referrals: Brionna Clark PA [Physician Artillery Meteorological Man] - Discharge Medications: New aspirin 81 mg tablet,delayed release (DR/EC) 81 mg PO BID 14 Days Qty: 28 0RF oxycodone-acetaminophen 5-325 mg tablet 1 - 2 tablet PO Q4-6H MDD 6 PRN (Reason: pain) Qty: 30 0RF Continued vitamin A-vitamin C-vit E-min Tablet 1 tablet PO DAILY pantoprazole 40 mg tablet,delayed release (DR/EC) 40 mg P
--- NOTE | 2023-10-17 08:10 | PCPTNOTE ---
Attempted to see patient for PT, however patient was eating breakfast.
[2023-10-17 08:13] LABS: Glucose Point of Care 113 mg/dl (65-105)
--- NOTE | 2023-10-17 08:45 | PCPTNOTE ---
Attempted to see patient for PT, however patient was working with OT.
--- NOTE | 2023-10-17 08:59 | P.PNAN_ITS ---
Anes - Prog Note Post-Op Date/Time: 10/17/23 08:59 Vital Signs: Last Vital Signs Temp 36.1 C L 10/17/23 02:53 Pulse 69 10/17/23 02:53 Resp 20 10/17/23 02:53 BP 128/55 L 10/17/23 02:53 Pulse Ox 97 10/17/23 02:53 O2 Del Method Room Air 10/16/23 20:00 O2 Flow Rate 2 10/16/23 15:01 Pain Score (VAS): 0 I/O: Intake & Output 10/16/23 10/17/23 10/17/23 23:59 07:59 15:59 Intake Total 810 490 360 Output Total 200 800 Balance 610 -310 360 Laboratory Tests 10/17/23 05:14 10/17/23 05:14 10/16/23 10/16/23 10/16/23 10:04 11:43 11:52 WBC 9.4 RBC 3.37 L Hgb 10.2 L Hct 32.8 L MCV 97.3 MCH 30.3 MCHC 31.1 L RDW 14.0 Plt Count 353 MPV 9.5 Immature Gran % (Auto) 0.3 Neut % (Auto) 91.5 H Lymph % (Auto) 6.0 L [place] % (Auto) 1.1 L Eos % (Auto) 0.6 Baso % (Auto) 0.5 Lymph # (Auto) 0.56 L [place] # (Auto) 0.1 Eos # (Auto) 0.1 Baso # (Auto) 0.1 Abs Immat Gran (auto) 0.03 Absolute Neuts (auto) 8.6 H Absolute Nucleated RBC 0.0 Nucleated RBC % 0.0 Sodium 134 L Potassium 4.1 Chloride 104 Carbon Dioxide 22 Anion Gap 8 BUN 23 H Creatinine 1.30 H Estim Creat Clear Calc 30 Estimated GFR 40 L Glucose 198 H POC Capillary Glucose 165 H 204 H Calcium 8.8 10/16/23 10/17/23 10/17/23 17:02 05:14 08:10 WBC 8.8 RBC 3.44 L Hgb 10.4 L Hct 33.2 L MCV 96.5 MCH 30.2 MCHC 31.3 L RDW 13.8 Plt Count 341 MPV 9.3 Immature Gran % (Auto) 0.3 Neut % (Auto) 74.2 H Lymph % (Auto) 15.8 L [place] % (Auto) 8.8 H Eos % (Auto) 0.1 Baso % (Auto) 0.8 Lymph # (Auto) 1.39 [place] # (Auto) 0.8 H Eos # (Auto) 0.0 Baso # (Auto) 0.1 Abs Immat Gran (auto) 0.03 Absolute Neuts (auto) 6.5 Absolute Nucleated RBC 0.0 Nucleated RBC % 0.0 Sodium 134 L Potassium 4.3 Chloride 103 Carbon Dioxide 26 Anion Gap 5 L BUN 15 D Creatinine 0.80 Estim Creat Clear Calc 48 Estimated GFR > 60 Glucose 122 H POC Capillary Glucose 201 H 113 H Calcium 9.3 Patient Feedback: Patient satisfied with anesthetic care. pt up in chair and very comfortable
[2023-10-17] MEDS: ceFAZolin 2 GM/D5W 50 ML 2 GM/50 ML BAG IVPB (09:29)
[2023-10-17] MEDS: metFORMIN HCL 500 MG TABLET PO (09:30)
[2023-10-17] MEDS: ATORVASTATIN 20 MG TABLET PO (09:30)
[2023-10-17] MEDS: FAMOTIDINE 20 MG TABLET PO (09:30)
[2023-10-17] MEDS: SPIRONOLACTONE 12.5 MG TABLET PO (09:30)
[2023-10-17] MEDS: SENNA/DOCUSATE SODIUM TABLET 2 TAB PO (09:30)
[2023-10-17] MEDS: amLODIPine BESYLATE 5 MG TABLET 10 MG PO (09:30)
[2023-10-17] MEDS: PARoxetine 20 MG TABLET 40 MG PO (09:30)
[2023-10-17] MEDS: ASPIRIN 81 MG ENTERIC TABLET PO (09:30)
[2023-10-17] MEDS: LOSARTAN POTASSIUM 25 MG TABLET PO (09:31)
[2023-10-17] MEDS: PANTOPRAZOLE 40 MG TABLET PO (09:31)
[2023-10-17] MEDS: polyethylene glycoL 3350 17 GM POWD.PACK PO (09:31)
[2023-10-17] MEDS: GABAPENTIN 300 MG CAPSULE PO (09:31)
[2023-10-17 11:45] LABS: Glucose Point of Care 97 mg/dl (65-105)
== END 2023-10-17 12:15 | disposition home or self-care (01) ==
LOC: ANHSURGERY 07:22 → ANH2MED 11:15
PROVIDERS: Physician Assistant Surgical; PCP Physician Assistant; Visit Provider Orthopaedic Surgery
PROC: (CPT 23472; principal; 2023-10-16 07:30)
DX: M19.011 Primary osteoarthritis, right shoulder (principal); G89.18 Other acute postprocedural pain; M75.81 Other shoulder lesions, right shoulder; M75.21 Bicipital tendinitis, right shoulder; K21.9 Gastro-esophageal reflux disease without esophagitis; E78.5 Hyperlipidemia, unspecified; I10 Essential (primary) hypertension; Z79.1 Long term (current) use of non-steroidal anti-inflammatories (NSAID); Z79.84 Long term (current) use of oral hypoglycemic drugs; Z79.899 Other long term (current) drug therapy; Z86.73 Personal history of transient ischemic attack (TIA), and cerebral infarction without residual deficits; Z82.49 Family history of ischemic heart disease and other diseases of the circulatory system
CPT/HCPCS: 23472; 64415; 36415; 73030; 80048; 82948; 85025; 86850; 86900; 86901; 97110; 97161; 97165; 97530; 97535; A4565; A9270; C1776; J0171; J0690; J1100; J1885; J2250; J2270; J2405; J2704; J2795; J3010; J3370; J7120